=== PATIENT | female | born 1990 | race Caucasian/White ===

== ENCOUNTER → 2017-12-07 09:02 | Outpatient (CLI) | payer OTHER, SELFPAY ==
[2017-12-07 10:45] LABS: HCG Quantitative /Beta subunit 229.72 mIU/mL
== END ==
PROVIDERS: PCP Obstetrics & Gynecology; Visit Provider Family Medicine
DX: Z34.90 Encounter for supervision of normal pregnancy, unspecified, unspecified trimester (principal)
CPT/HCPCS: 36415; 84702

== ENCOUNTER → 2018-01-05 17:15 | Outpatient (CLI) | payer OTHER, MEDICAID, SELFPAY ==
[2018-01-05 17:56] LABS: Add Manual Diff / Slide Review NO; Basophils Percent Auto 0.2 % (0-2); Hematocrit 35.2 % (36-46); Lymphocytes Percent Auto 30.4 % (25-40); Mean Corpuscular HGB Conc 34.2 % (30-36); Mean Corpuscular Hemoglobin 29.2 PG (26-34); Mean Corpuscular Volume 85.4 fL (80-100); Monocytes Percent Auto 5.3 % (3-14); Neutrophils Absolute Auto 4800 /uL (3000-5900); Neutrophils Percent Auto 64.1 % (50-75); Platelet Count 171 X10^3/uL (150-400); Red Blood Cell Count 4.12 X10^6/uL (4.0-5.2); Red Cell Distribution Width 12.9 % (11.6-14.8); White Blood Cell Count 7.6 X10^3/uL (4.5-11.0)
[2018-01-05 19:21] LABS: Hepatitis B Surface Antigen NEGATIVE s/c (NEGATIVE); Rubella Antibody IgG 36.7 IU/mL (>15)
[2018-01-05 19:46] LABS: HIV 1 and 2 Antibody NEGATIVE (NEGATIVE); Hep C Virus Ab w/Reflex Quant NEGATIVE s/c (NEGATIVE)
[2018-01-07 13:33] LABS: HSV 2 IGG AB < 0.90 index (< 0.90); HSV1IGG < 0.90 index (< 0.90)
[2018-01-11 15:23] LABS: Rapid Plasma Reagin NON-REACTIVE
== END ==
PROVIDERS: Visit Provider Obstetrics & Gynecology
DX: Z34.91 Encounter for supervision of normal pregnancy, unspecified, first trimester (principal); Z12.4 Encounter for screening for malignant neoplasm of cervix; Z11.3 Encounter for screening for infections with a predominantly sexual mode of transmission; Z11.8 Encounter for screening for other infectious and parasitic diseases
CPT/HCPCS: 36415; 80055; 86695; 86696; 86703; 86787; 86803; 86850; 86900; 86901; 87077; 87086

== ENCOUNTER → 2018-03-02 10:18 | Outpatient (CLI) | payer OTHER, MEDICAID, SELFPAY ==
[2018-03-08 13:39] LABS: AFP, Serum 29.9 ng/mL; Calc Gestational Age 16.4; Cigarette Smoker NG; Donated Egg NOT GIVEN; Donor Egg Age NOT GIVEN; Estriol, Free 0.83 ng/mL; Inhibin A, Dimeric 194 pg/mL; Maternal Ethnicity White; Maternal Weight 225 lbs; Number of Fetuses 1; Previous Pregnancy Down Syndro NOT GIVEN; hCG, MoM 1.93; hCG, Serum 48.3 IU/mL
== END ==
PROVIDERS: Visit Provider Obstetrics & Gynecology
DX: Z34.82 Encounter for supervision of other normal pregnancy, second trimester (principal)
CPT/HCPCS: 36415; 82105; 82677; 84702; 86336

== ENCOUNTER → 2018-03-31 07:34 | Outpatient (CLI) | payer OTHER, MEDICAID, SELFPAY ==
--- NOTE | 2018-03-31 07:37 | DI.US.S_ITS ---
PROCEDURE: US OB >= 14 WEEKS FETUS INDICATIONS: ANATOMY OUTSIDE/PRIOR DATING DATA: Last menstrual period (LMP): 10/31/17. LMP-based estimated date of delivery (DANIELLA): 08/07/18. First dating scan (date and location): 01/05/18, by Dr. Tariq. Estimated date of delivery (DANIELLA) from first dating scan: 08/14/18, by Dr. Tariq. TECHNIQUE: Real-time scanning was performed of the fetus, with image documentation and biometric measurements. Endovaginal scanning: Not necessary for this study COMPARISON: [facility], , OB >= 14 WEEKS FETUS, 03/02/2018, 10:11. [facility], , OB <= 14 WEEKS FETUS, 02/02/2018, 9:28. [facility], , US OB <= 14 WEEKS FETUS, 01/05/2018, 17:03. FINDINGS: General: A single living intrauterine gestation is present. Presentation: Vertex. Placenta: Placental position is right-sided fundal, without previa. Amniotic fluid index: 14.5 cm, normal range is 5-24 cm. heart rate: 133 beats per minute. Maternal cervical canal: 3.1 cm long. Normal lower limit is 2.5 cm. biometrics: Biparietal diameter: 4.6 cm, 19 weeks 6 days Head circumference: 17.3 cm, 19 weeks 6 days Abdominal circumference: 15.7 cm, 20 weeks 6 days Femur length: 3.3 cm, 20 weeks 3 days Estimated gestational age from initial scan: 20 weeks 4 days Composite gestational age from present scan: 20 weeks 2 days Estimated weight and percentile: 360 g, 43rd percentile Measurement variability for biometric dating: +/- 7 days from 14 weeks to 15 weeks 6 days gestation, +/- 10 days from 16 weeks to 21 weeks 6 days gestation, +/- 2 weeks from 22 weeks to 27 weeks 6 days gestation, +/- 3 weeks for 28 weeks gestation or later. weight reference: 4500 g or EFW >90/95% is considered macrosomia or large for gestational age. EFW <10% is small for gestational age. EFW 5% or less is considered intra-uterine growth restriction. Anatomic survey: Neuro: Ventricles are non-dilated at less than 10 mm. Cisterna magna is normal at 3-11 mm. Cerebellum is normal in size and morphology. Nuchal skin fold: Normal at less than 6 mm between 14-21 weeks gestational age. Face: Nose and lips, facial profile are normal. Spine: No evidence for spina bifida. Heart: 4-chambered heart is present, with normal ventricular outflow tracts. Diaphragm: Diaphragm is intact. Stomach: Left-sided stomach is present. Kidneys: No hydronephrosis. Normal is less than 5 mm in 2nd trimester, less than 7 mm in 3rd trimester. Cord: 3-vessel cord has orthotopic insertion. Bladder: Normal in size. Extremities: All 4 extremities identified. IMPRESSION: Appropriate interval growth, no anomalies seen. The delivery date is projected to be centered on 08/14/18, plus or -5 days. Dictated by: Kayden Stewart M.D. on 03/31/2018 at 8:33 Approved by: Kayden Stewart M.D. on 03/31/2018 at 8:35
== END ==
PROVIDERS: Visit Provider Obstetrics & Gynecology
DX: Z34.82 Encounter for supervision of other normal pregnancy, second trimester (principal); Z3A.20 20 weeks gestation of pregnancy
CPT/HCPCS: 76811

== ENCOUNTER → 2018-05-14 08:29 | Outpatient (CLI) | payer OTHER, MEDICAID, SELFPAY ==
[2018-05-14 10:14] LABS: Hemoglobin 10.6 g/dL (12.0-16.0)
[2018-05-14 10:40] LABS: GTT (PREG) 1 Hour PP 50gm Dose 148 mg/dL (76-139)
== END ==
PROVIDERS: Visit Provider Obstetrics & Gynecology
DX: Z34.82 Encounter for supervision of other normal pregnancy, second trimester (principal)
CPT/HCPCS: 36415; 82950; 85014; 85018; 86850

== ENCOUNTER → 2018-05-18 07:11 | Outpatient (CLI) | payer OTHER, MEDICAID, SELFPAY ==
[2018-05-18 08:26] LABS: Glucose Fasting Gestational 90 mg/dL (76-95)
[2018-05-18 09:44] LABS: Glucose 1 Hour Gest 185 mg/dL (76-180)
[2018-05-18 10:16] LABS: Glucose 2 Hour Gest 144 mg/dL (76-155)
[2018-05-18 10:38] LABS: Glucose Tol Interp,Gestational INTERPRETATION
[2018-05-18 12:23] LABS: Glucose 3 Hour Gest 122 mg/dL (76-140)
== END ==
PROVIDERS: Visit Provider Obstetrics & Gynecology
DX: R73.09 Other abnormal glucose (principal)
CPT/HCPCS: 36415; 82951; 82952

== ENCOUNTER → 2018-07-21 14:48 | Outpatient (CLI) | payer OTHER, MEDICAID, SELFPAY ==
[2018-07-22 15:48] LABS: Strep Grp B PCR NEG for Grp B Strep
== END ==
PROVIDERS: PCP Family Medicine; Visit Provider Obstetrics & Gynecology
DX: Z34.83 Encounter for supervision of other normal pregnancy, third trimester (principal)
CPT/HCPCS: 87653

== ENCOUNTER 2018-08-12 06:43 | Inpatient (IN) | payer OTHER, MEDICAID, SELFPAY ==
[2018-08-12 08:01] LABS: Add Manual Diff / Slide Review NO; Basophils Absolute Auto 0 /uL (0-100); Basophils Percent Auto 0.3 % (0-2); Eosinophils Absolute Auto 0 /uL (0-450); Hematocrit 32.5 % (36-46); Hemoglobin 10.9 g/dL (12.0-16.0); Lymphocytes Absolute Auto 1700 /uL (1100-4500); Lymphocytes Percent Auto 25.4 % (25-40); Mean Corpuscular HGB Conc 33.5 % (30-36); Mean Corpuscular Hemoglobin 28.1 PG (26-34); Mean Corpuscular Volume 83.9 fL (80-100); Monocytes Absolute Auto 500 /uL (0-900); Neutrophils Absolute Auto 4500 /uL (1500-7000); Neutrophils Percent Auto 67.3 % (50-75); Platelet Count 174 X10^3/uL (150-400); Red Blood Cell Count 3.88 X10^6/uL (4.0-5.2); Red Cell Distribution Width 15.1 % (11.6-14.8); White Blood Cell Count 6.6 X10^3/uL (4.5-11.0)
[2018-08-12] MEDS: OXYTOCIN PREMIX 30 UNIT/500 ML PLAST..BAG IV (08:12)
[2018-08-12 08:42] VITALS: BP 132/78
--- NOTE | 2018-08-12 17:48 | PM.OBHP.1 ---
OB HPI Date/Time Date of admission: 08/12/18 Date Patient Seen: 08/12/18 Time Patient Seen: 11:35 History of Present Condition Chief complaint: LABOR AND DELIVERY : 2 Para: 1 Estimated Date of Delivery: 08/14/18 Estimated Gestational Age (weeks): 39+5 Narrative: Francesca Vinson is a 27 year old female 2 para 1 at 39 and 5/7 weeks gestation for induction of labor Indications Indication for induction OB: maternal discomfort and other (History of large baby) History of Present care: good care, initiated at week # (9), number of visits (12) and pounds weight gain (30) Dating criteria: LMP confirmed by 1st trimester US Ultrasounds: normal 1st trimester US and normal mid trimester US Medical complications: none Preadmission Labs Blood type: A (-) negative -: Antibody screen: negative, GBS status: negative, HBsAG: negative, HIV: negative, HSV 1: negative, HSV 2: negative and RPR/VDLR: negative -: Chlamydia screen: not detected and Gonorrhea screen: not detected -: Rubella: immune and Varicella: immune HCT: 30 HCAB: negative PAP: Normal Urine: Positive, treated 1 hr GTT: 148 3 hr GTT: 1 hr (185), 2 hr (144) and 3 hr (122) Fasting blood glucose: 90 Prior (ies) History: 1 , no complications Evaluation Evaluation Baseline heart rate: 140 Variability: Moderate (11-25) monitor accelerations: Present monitor decelerations: Absent Category of Tracing: I Cervical dilation (cm): 2 Cervical effacement (%): 80 station: -1 Laboratory results: Laboratory Tests 08/12/18 08/12/18 07:45 07:45 WBC 6.6 RBC 3.88 L Hgb 10.9 L Hct 32.5 L MCV 83.9 MCH 28.1 MCHC 33.5 RDW 15.1 H Plt Count 174 Neut % (Auto) 67.3 Lymph % (Auto) 25.4 [place] % (Auto) 7.0 Eos % (Auto) 0.0 L Baso % (Auto) 0.3 Neut # (Auto) 4500 Lymph # (Auto) 1700 [place] # (Auto) 500 Eos # (Auto) 0 Baso # (Auto) 0 Blood Type A Negative Antibody Screen Positive Antibody Identification Anti-D PFSH Surgical History No history of previous surgery (Resolved 03/06/14) Family History Father Age: 57 Hypertension Grandfather Diabetes mellitus Social History Smoking Status: Never smoker Family History Father Age: 57 Hypertension Grandfather Diabetes mellitus Social History Smoking Status: Never smoker Meds Home Medications Medication Instructions Recorded Confirmed Type [Foreign-E] 400 mg #0 04/27/17 04/13/18 History omega 7-qbw-omn-fish oil [Fish Oil] 1,200 mg QDAY #0 04/27/17 04/13/18 History 1 tab PO DAILY 12/14/17 08/12/18 History vitamin,calcium,gtvepvqx-krdl-kkgko acid tablet albuterol sulfate HFA 90 1 inhalation INHALATION ONCE #6.7 04/13/18 Rx mcg/actuation aerosol inhaler gram azithromycin 250 mg tablet See Rx Instructions PO .COMPLEX #6 04/13/18 Rx tab Allergies Allergy/AdvReac Type Severity Reaction Status Date / Time penicillin V [PENICILLIN V] Allergy Mild as a child Verified 04/13/18 17:48 loratadine [LORATADINE] AdvReac Mild NAUSEA Verified 04/13/18 17:48 Exam Vital Signs (past 8 hours): Generally: Patient sitting up in bed, no acute distress Lungs: Clear to auscultation bilaterally Cardiovascular: Regular rate and rhythm Fundal height: 41 cm Estimated weight 9 lb Extremities: Trace edema, negative Homans Objective Labs Result Diagrams: 08/12/18 07:45 Labs: Laboratory Results - last 24 hr 08/12/18 08/12/18 07:45 07:45 WBC 6.6 RBC 3.88 L Hgb 10.9 L Hct 32.5 L MCV 83.9 MCH 28.1 MCHC 33.5 RDW 15.1 H Plt Count 174 Neut % (Auto) 67.3 Lymph % (Auto) 25.4 [place] % (Auto) 7.0 Eos % (Auto) 0.0 L Baso % (Auto) 0.3 Neut # (Auto) 4500 Lymph # (Auto) 1700 [place] # (Auto) 500 Eos # (Auto) 0 Baso # (Auto) 0 Blood Type A Negative Antibody Screen Positive Antibody Identification Anti-D Assessment and Plan (1) 39 weeks gestation of : Current visit: Yes Status: Acute (2) Elective induction of labor planned: Current visit: Yes Status: Acute (3) Macrosomia: Current visit: Yes Status: Acute Plan: Assessment: 27-year-old 2 para 1 at 39-,5/7 weeks gestation for elective induction of labor due to previous history of nilee-mrx-clvgjvobyhn-age Desires tubal ligation Plan: Pitocin per protocol 2 Artificial rupture of membranes with light meconium-stained amniotic fluid Expected management to spontaneous vaginal delivery tubal ligation
--- NOTE | 2018-08-12 17:58 | P.HPOB_ITS ---
OB HPI Date/Time Date of admission: 08/12/18 Date Patient Seen: 08/12/18 Time Patient Seen: 11:35 History of Present Condition Chief complaint: LABOR AND DELIVERY : 2 Para: 1 Estimated Date of Delivery: 08/14/18 Estimated Gestational Age (weeks): 39+5 Narrative: Francesca Vinson is a 27 year old female 2 para 1 at 39 and 5/7 weeks gestation for induction of labor Indications Indication for induction OB: maternal discomfort and other (History of large baby) History of Present care: good care, initiated at week # (9), number of visits (12) and pounds weight gain (30) Dating criteria: LMP confirmed by 1st trimester US Ultrasounds: normal 1st trimester US and normal mid trimester US Medical complications: none Preadmission Labs Blood type: A (-) negative -: Antibody screen: negative, GBS status: negative, HBsAG: negative, HIV: ne gative, HSV 1: negative, HSV 2: negative and RPR/VDLR: negative -: Chlamydia screen: not detected and Gonorrhea screen: not detected -: Rubella: immune and Varicella: immune HCT: 30 HCAB: negative PAP: Normal Urine: Positive, treated 1 hr GTT: 148 3 hr GTT: 1 hr (185), 2 hr (144) and 3 hr (122) Fasting blood glucose: 90 Prior (ies) History: 1 , no complications Evaluation Evaluation Baseline heart rate: 140 Variability: Moderate (11-25) monitor accelerations: Present monitor decelerations: Absent Category of Tracing: I Cervical dilation (cm): 2 Cervical effacement (%): 80 station: -1 Laboratory results: Laboratory Tests 08/12/18 08/12/18 07:45 07:45 WBC 6.6 RBC 3.88 L Hgb 10.9 L Hct 32.5 L MCV 83.9 MCH 28.1 MCHC 33.5 RDW 15.1 H Plt Count 174 Neut % (Auto) 67.3 Lymph % (Auto) 25.4 [place] % (Auto) 7.0 Eos % (Auto) 0.0 L Baso % (Auto) 0.3 Neut # (Auto) 4500 Lymph # (Auto) 1700 [place] # (Auto) 500 Eos # (Auto) 0 Baso # (Auto) 0 Blood Type A Negative Antibody Screen Positive Antibody Identification Anti-D PFSH Surgical History No history of previous surgery (Resolved 03/06/14) Family History Father Age: 57 Hypertension Grandfather Diabetes mellitus Social History Smoking Status: Never smoker Family History Father Age: 57 Hypertension Grandfather Diabetes mellitus Social History Smoking Status: Never smoker Meds Home Medications Medication Instructions Recorded Confirmed Type [Foreign-E] 400 mg #0 04/27/17 04/13/18 History omega 5-lmf-swk-fish oil [Fish Oil] 1,200 mg QDAY #0 04/27/17 04/13/18 History 1 tab PO DAILY 12/14/17 08/12/18 History vitamin,calcium,bktpfstu-gvmv-lpddj acid tablet albuterol sulfate HFA 90 1 inhalation INHALATION ONCE #6.7 04/13/18 Rx mcg/actuation aerosol inhaler gram azithromycin 250 mg tablet See Rx Instructions PO .COMPLEX #6 04/13/18 Rx tab Allergies Allergy/AdvReac Type Severity Reaction Status Date / Time penicillin V [PENICILLIN V] Allergy Mild as a child Verified 04/13/18 17:48 loratadine [LORATADINE] AdvReac Mild NAUSEA Verified 04/13/18 17:48 Exam Vital Signs (past 8 hours): Generally: Patient sitting up in bed, no acute distress Lungs: Clear to auscultation bilaterally Cardiovascular: Regular rate and rhythm Fundal height: 41 cm Estimated weight 9 lb Extremities: Trace edema, negative Homans Objective Labs Result Diagrams: 08/12/18 07:45 Labs: Laboratory Results - last 24 hr 08/12/18 08/12/18 07:45 07:45 WBC 6.6 RBC 3.88 L Hgb 10.9 L Hct 32.5 L MCV 83.9 MCH 28.1 MCHC 33.5 RDW 15.1 H Plt Count 174 Neut % (Auto) 67.3 Lymph % (Auto) 25.4 [place] % (Auto) 7.0 Eos % (Auto) 0.0 L Baso % (Auto) 0.3 Neut # (Auto) 4500 Lymph # (Auto) 1700 [place] # (Auto) 500 Eos # (Auto) 0 Baso # (Auto) 0 Blood Type A Negative Antibody Screen Positive Antibody Identification Anti-D Assessment and Plan (1) 39 weeks gestation of : Current visit: Yes Status: Acute (2) Elective induction of labor planned: Current visit: Yes Status: Acute (3) Macrosomia: Current visit: Yes Status: Acute Plan: Assessment: 27-year-old 2 para 1 at 39-,5/7 weeks gestation for elective induction of labor due to previous history of nqzfu-nho-qrtlzwszsjx-age Desires tubal ligation Plan: Pitocin per protocol 2 Artificial rupture of membranes with light meconium-stained amniotic fluid Expected management to spontaneous vaginal delivery tubal ligation
--- NOTE | 2018-08-12 17:58 | PM.OBPRVD ---
Delivery date: 08/12/18 Intrapartal events: None Cervical ripening method: none Induction method: per pitocin protocol Delivery augmentation: rupture of membranes Delivery monitor: external FHT and external uterine Route of delivery: Episiotomy description: None L&D Laceration Description: None Estimated blood loss (mL): 150 Anesthesia type: None Complications: None Narrative: Patient complete and pushed x1. At 2:25 p.m., a live female infant delivered spontaneously over an intact perineum. The remainder of the body delivered without difficulty and was placed on mom's abdomen. After the cord stopped pulsing, the cord was double clamped and cut. Cord bloods were obtained. Placenta delivered intact with a 3 vessel cord at 2:30 p.m.. No lacerations. Thin meconium-stained amniotic fluid. . Apgars 8 at 1 min and 9 at 5 min. Weight 9 lb 9.62 oz. . Mom and stable to recovery. Plan for aftercare: To routine care
--- NOTE | 2018-08-13 | PATH_ITS ---
[facility] Accession Number: [id number] . 01 Material submitted: . SEGMENTS RIGHT AND LEFT FALLOPIAN TUBES . 02 Diagnosis: Right and Left Fallopian Tube Segments, Bilateral Tubal Ligation: Complete cross-sections of segments of fallopian tube x2. Negative for atypia and malignancy. MRV/08/16/2018 . 02 Electronically signed: . Shira Clemente MD, Pathologist NPI- [id number] . 01 Gross description: . Received in formalin, labeled segments right + left fallopian tubes, are two fimbriated fallopian tubes (tube #1: length-3.1 cm, diameter-0.4 cm; tube #2: length-3.4 cm, diameter-0.5) with elizalde-pink smooth shiny serosa and elizalde unremarkable lumens. Section code: (A1) fallopian tube #1, mechanical service representative serial sections; (A2) fimbria #1, bivalved, entirely submitted; (A3) fallopian tube #2, mechanical service representative serial sections; (A4) fimbria #2, bivalved, entirely submitted. ([id number]) /MRV . 02 Pathologist provided ICD-10: Z30.2 . 02 CPT . 422738 Performed at: 01 [facility] [address], [place], [place] [id number] MD Chavo Gonzalez MD Phone: [phone] Performed at: 02 [facility] [address] [place], [place] [id number] MD Aleksandra Oro MD Phone: [phone]
[2018-08-13 05:34] LABS: Hematocrit 30.1 % (36-46); Hemoglobin 10.2 g/dL (12.0-16.0)
--- NOTE | 2018-08-13 07:37 | PM.PREOP ---
Pre-operative Note Interval Note History & Physical reviewed/Exam performed by Physician: Yes Changes to H&P: No H&P completed within 30 days and has changed as indicated here:: s/p vaginal delivery
--- NOTE | 2018-08-13 07:38 | PM.PN.1 ---
Subjective Date Patient Seen: 08/13/18 Time Patient Seen: 07:38 Interval history: Post vaginal delivery. Patient is requesting tubal ligation. Patient is aware of all control options. She requests permanent sterilization. She understands she can have no more children after this procedure. The risks of damage to the intestine or other internal structures discussed. Risk of infection discussed. One 400 risk of ectopic after tubal ligation discussed. Consent form was signed and questions answered. Patient denies any signs or symptoms of preeclampsia. She is ambulatory. She has no nausea. Her bleeding is minimal. Exam Vital Signs (past 8 hours): Blood pressure 116/63, pulse of 82, temperature 97.8? Narrative Exam Narrative: Patient's abdomen is soft, nontender. Uterus is firm, at U, nontender. Mild lochia. Extremities without edema and nontender Objective Labs Result Diagrams: 08/13/18 05:11 Labs: Laboratory Results - last 24 hr 08/12/18 08/12/18 08/13/18 07:45 07:45 05:11 WBC 6.6 RBC 3.88 L Hgb 10.9 L Hct 32.5 L MCV 83.9 MCH 28.1 MCHC 33.5 RDW 15.1 H Plt Count 174 Neut % (Auto) 67.3 Lymph % (Auto) 25.4 [place] % (Auto) 7.0 Eos % (Auto) 0.0 L Baso % (Auto) 0.3 Neut # (Auto) 4500 Lymph # (Auto) 1700 [place] # (Auto) 500 Eos # (Auto) 0 Baso # (Auto) 0 Blood Type A Negative Antibody Screen Positive Antibody Identification Anti-D Maternal Bleed Negative 08/13/18 05:11 WBC RBC Hgb 10.2 L Hct 30.1 L MCV MCH MCHC RDW Plt Count Neut % (Auto) Lymph % (Auto) [place] % (Auto) Eos % (Auto) Baso % (Auto) Neut # (Auto) Lymph # (Auto) [place] # (Auto) Eos # (Auto) Baso # (Auto) Blood Type Antibody Screen Antibody Identification Maternal Bleed Assessment & Plan Assessment & Plan narrative: vaginal delivery with undesired fertility requesting tubal ligation. Likely home after recovering from anesthetic. Time Spent With Patient Time with patient: less than 15 minutes
[2018-08-13] MEDS: RHO(D) IMMUNE GLOBULIN 1,500 UNIT SYRINGE 1500 UNIT IM (08:51)
--- NOTE | 2018-08-13 12:00 | SUR.OPER ---
Supine on padded OR bed, head on pillow, arms secured on padded arm boards at <90 degrees abduction, legs uncrossed, safety belt at thigh, tape over blanket over lower legs.
[2018-08-13] MEDS: CEFAZOLIN 1 GM/50 ML FROZ.PIGGY IV (12:25)
[2018-08-13] MEDS: BUPIVACAINE 0.5% W/ EPI (PF) VIAL 30 ML INJ (12:54)
[2018-08-13 13:21] VITALS: BP 109/73; PULSE 89; RESP 15; TEMP 36.3; O2SAT 90
--- NOTE | 2018-08-13 13:24 | PM.OP.1 ---
Operative Date/Time/Diagnoses Date of procedure: 08/13/18 Time of procedure: 13:25 Pre-op diagnosis: Undesired fertility Post-op diagnosis: same Procedure & Clinicians Procedure: Mini-laparotomy bilateral tubal ligation Same procedure as scheduled: Yes Indications: Undesired fertility status post vaginal delivery Surgeon: Nica Farnsworth Click Yes if Unassisted: Yes Anesthesia Type: General Operative Notes Findings: Normal fallopian tubes bilaterally Closure Type: primary Specimen(s): other (Segments of bilateral fallopian tubes) Estimated Blood Loss (mL): 1 Blood products transfused: none Procedure in detail: Patient was brought to the operating room where she underwent general anesthesia. She was in a supine position. She was prepped and draped in the usual sterile fashion. Warming was with blankets. 1 g Ancef was in prior to beginning of the case. A check system was reviewed with staff in the room. The area of the umbilicus was injected with 0.5% Marcaine with epinephrine. An incision was made with a scalpel and incision carried down to the fascial layer which was incised transversely. The peritoneum was entered sharply. There did not appear to be damage to internal structures with entering the abdomen. The fallopian tube on the right side was grasped with a [place] and followed to the fimbria. A segment was tied off x2 with 2 0 plain suture. The intervening segment was removed and sent to pathology. The tube was injected with 0.5% Marcaine. Adequate hemostasis was noted and the tube was allowed to fall back in the abdomen. Same procedure was performed on the left side. The fascial layer was closed with 2 0 Vicryl. The skin was closed with 4 0 Vicryl. The patient went to recovery room in good condition. Counts of instruments and sponges were correct. Complications: none Condition: stable Disposition: same day surgery Plan for aftercare: Home when awake and stable. Patient has follow-up appointment scheduled with Dr. Tariq in 2 weeks
[2018-08-13 13:26] VITALS: BP 106/75; PULSE 92; RESP 16; O2SAT 95
--- NOTE | 2018-08-13 13:29 | P.OP_ITS ---
Operative Date/Time/Diagnoses Date of procedure: 08/13/18 Time of procedure: 13:25 Pre-op diagnosis: Undesired fertility Post-op diagnosis: same Procedure & Clinicians Procedure: Mini-laparotomy bilateral tubal ligation Same procedure as scheduled: Yes Indications: Undesired fertility status post vaginal delivery Surgeon: Nica Farnsworth Click Yes if Unassisted: Yes Anesthesia Type: General Operative Notes Findings: Normal fallopian tubes bilaterally Closure Type: primary Specimen(s): other (Segments of bilateral fallopian tubes) Estimated Blood Loss (mL): 1 Blood products transfused: none Procedure in detail: Patient was brought to the operating room where she underwent general anesthesia. She was in a supine position. She was prepped and draped in the usual sterile fashion. Warming was with blankets. 1 g Ancef was in prior to beginning of the case. A check system was reviewed with staff in the room. The area of the umbilicus was injected with 0.5% [place] with epinephrine. An incision was made with a scalpel and incision carried down to the fascial layer which was incised transversely. The peritoneum was entered sharply. There did not appear to be damage to internal structures with entering the abdomen. The fallopian tube on the right side was grasped with a [place] and followed to the fimbria. A segment was tied off x2 with 2 0 plain suture. The intervening segment was removed and sent to pathology. The tube was injected with 0.5% Marcaine. Adequate hemostasis was noted and the tube was allowed to fall back in the abdomen. Same procedure was performed on the left side. The fascial layer was closed with 2 0 Vicryl. The skin was closed with 4 0 Vicryl. The patient went to recovery room in good condition. Counts of instruments and sponges were correct. Complications: none Condition: stable Disposition: same day surgery Plan for aftercare: Home when awake and stable. Patient has follow-up a ppointment scheduled with Dr. Tariq in 2 weeks
[2018-08-13 13:31] VITALS: BP 107/72; PULSE 77; RESP 10; O2SAT 97
[2018-08-13] MEDS: fentaNYL 100 MCG/2 ML INJ 50 MCG IV (13:33)
[2018-08-13 13:36] VITALS: BP 108/71; PULSE 76; RESP 9; O2SAT 97
[2018-08-13 13:41] VITALS: BP 110/73; PULSE 75; RESP 14; O2SAT 94
--- NOTE | 2018-08-13 13:44 | SUR.PHASEI ---
Small amt of pink drainage to brandon-pad
--- NOTE | 2018-08-13 13:47 | SUR.PHASEI ---
Report called to JENNIFER Gee
--- NOTE | 2018-08-13 13:57 | SUR.PHASEI ---
Pt reported 2-3/10 abd pain. Pt transferred to the center. Vs stable. Report to Marlen. Umbilical drsg cdi. Small to mod amt of pink drainage to brandon-pad. IV saline locked.
[2018-08-13] MEDS: IBUPROFEN 600 MG TABLET PO (15:10)
[2018-08-13 17:52] VITALS: BP 120/73; PULSE 71; RESP 16; TEMP 36.1
--- NOTE | 2018-08-15 10:46 | PM.OBDS.1 ---
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 She received Pitocin. She delivered spontaneously without any vaginal tears a viable female infant weighing 9 lb 9.6 oz. Patient underwent a tubal ligation. She did well after the procedure. She had no signs or symptoms of preeclampsia. Her bleeding was mild. Her pain was under control. Blood pressure 111/68, pulse 71, temperature 97.4? Patient's abdomen is soft, appropriately tender. Dressing is dry at the umbilicus. Mild lochia with perineum intact. Extremities without edema and nontender. Patient is rubella immune. Peripartum Data Delivery Method: Natural Vaginal Laceration description: None Procedures: Who vaginal delivery, tubal ligation complications: none 1: Gender: Female Disposition of : home Discharge Diagnosis (1) 39 weeks gestation of : Status: Acute (2) Elective induction of labor planned: Status: Acute (3) Macrosomia: Status: Acute (4) Spontaneous vaginal delivery: Status: Acute (5) Sterilization: Status: Acute Status at Discharge Functional status at discharge: independent ambulation Overall status at discharge: patient is progressing back to baseline Time Spent with Patient Total time spent providing and/or coordinating discharge services: Less than 30 minutes Objective Labs Result Diagrams: 08/13/18 05:11 Discharge Plan Discharge Plan Patient Disposition: Home Discharge comment: Call with fever, chills, redness or drainage around incision or bleeding vaginally more than a pad in an hour Discharge Med Rec/Prescriptions Prescriptions: New oxycodone-acetaminophen [Percocet] 5-325 mg tablet 1 tab PO Q4-6H PRN (Reason: pain) Qty: 20 RF: 0 Continued albuterol sulfate 90 mcg/actuation HFA aerosol inhaler 1 inhalation INHALATION ONCE Qty: 6.7 RF: 0 omega 6-hvz-qgz-fish oil [Fish Oil] 1,000 MG capsule 1,200 mg QDAY Qty: 0 RF: 0 [Foreign-E] 400 mg Qty: 0 RF: 0 prenat.vits,rosa,mne-iyjo-ddoqu [ Vitamin] tablet 1 tab PO DAILY RF: 0 Discontinued azithromycin 250 mg tablet See Rx Instructions PO .COMPLEX Qty: 6 RF: 0 Follow up/Referrals: Britany Tariq MD [Physician] - 2 Weeks (Your two week follow up appt. with Dr. Tariq is on August 24 @12:30pm. Your six week follow up appointment with Dr. Tariq is September 20@3pm.) Provider Discharge Instructions Diet: Diet as Tolerated Activity: No intercourse Skin/Wound/Dressing Care Report to your healthcare provider any signs of infection, such as:: chills, fever, increased pain, unusual drainage and unusual redness Dressing: Remove after first shower Visit Report/Discharge Packet Instructions: DI for Tubal Ligation, DI for Labor and Delivery, Vaginal Stand Alone Forms: Discharge: Care Visit Report Forms: Stroke Signs & Symptoms Discharge Data Primary Care Provider: Marjorie Alvarez Attending Provider: Britany Tariq Admit Date/Time: 08/12/18 06:43 Discharges patient from system. Discharge Date/Time: 08/13/18 18:35
--- NOTE | 2018-08-15 10:50 | P.DS_ITS ---
Discharge Providers Date of admission: 08/12/18 06:43 Primary care physician: Marjorie Alvarez MD Consults: 08/12/18 17:40 Consult to Supervisor Mail Carriers Routine Comment: Discharge provider: Nica Farnsworth MD Discharge Date: 08/13/18 Summary Date Patient Seen: 08/13/18 Time Patient Seen: 15:30 Hospital Course: Patient arrived on Labor and delivery on 08/12/2018 for induction for term gestation and LGA . She received Pitocin. She delivered spontaneously without any vaginal tears a viable female infant weighing 9 lb 9.6 oz. Patient underwent a tubal ligation. She did well after the procedure. She had no signs or symptoms of preeclampsia. Her bleeding was mild. Her pain was under control. Blood pressure 111/68, pulse 71, temperature 97.4? Patient's abdomen is soft, appropriately tender. Dressing is dry at the umbil icus. Mild lochia with perineum intact. Extremities without edema and nontender. Patient is rubella immune. Peripartum Data Delivery Method: Natural Vaginal Laceration description: None Procedures: Who vaginal delivery, tubal ligation complications: none [place] 1: Gender: Female Disposition of : home Discharge Diagnosis (1) 39 weeks gestation of : Status: Acute (2) Elective induction of labor planned: Status: Acute (3) Macrosomia: Status: Acute (4) Spontaneous vaginal delivery: Status: Acute (5) Sterilization: Status: Acute Status at Discharge Functional status at discharge: independent ambulation Overall status at discharge: patient is progressing back to baseline Time Spent with Patient Total time spent providing and/or coordinating discharge services: Less than 30 minutes Objective Labs Result Diagrams: 08/13/18 05:11 Discharge Plan Discharge Plan Patient Disposition: Home Discharge comment: Call with fever, chills, redness or drainage around incision or bleeding vaginally more than a pad in an hour Discharge Med Rec/Prescriptions Prescriptions: New oxycodone-acetaminophen [Percocet] 5-325 mg tablet 1 tab PO Q4-6H PRN (Reason: pain) Qty: 20 RF: 0 Continued albuterol sulfate 90 mcg/actuation HFA aerosol inhaler 1 inhalation INHALATION ONCE Qty: 6.7 RF: 0 omega 2-brp-qzd-fish oil [Fish Oil] 1,000 MG capsule 1,200 mg QDAY Qty: 0 RF: 0 [Foreign-E] 400 mg Qty: 0 RF: 0 prenat.vits,rosa,ybm-jilq-mewcy [ Vitamin] tablet 1 tab PO DAILY RF: 0 Discontinued azithromycin 250 mg tablet See Rx Instructions PO .COMPLEX Qty: 6 RF: 0 Follow up/Referrals: Britany Tariq MD [Physician] - 2 Weeks (Your two week follow up appt. with Dr. Tariq is on August 24 @12:30pm. Your six week follow up appointment with Dr. Tariq is September 20@3pm.) Provider Discharge Instructions Diet: Diet as Tolerated Activity: No intercourse Skin/Wound/Dressing Care Report to your healthcare provider any signs of infection, such as:: chills, fever, increased pain, unusual drainage and unusual redness Dressing: Remove after first shower Visit Report/Discharge Packet Instructions: DI for Tubal Ligation, DI for Labor and Delivery, Vaginal Stand Alone Forms: Discharge: Care Visit Report Forms: Stroke Signs & Symptoms Discharge Data Primary Care Provider: Marjorie Alvarez Attending Provider: Britany Tariq Admit Date/Time: 08/12/18 06:43 Discharges patient from system. Discharge Date/Time: 08/13/18 18:35
== END 2018-08-13 18:35 | disposition home or self-care (01) | DRG 798 ==
PROVIDERS: Specialist; Admitting Provider Obstetrics & Gynecology; PCP Family Medicine; Visit Provider Obstetrics & Gynecology
PROC: 0UB74ZZ Excision of Bilateral Fallopian Tubes, Percutaneous Endoscopic Approach (ICD-10-PCS; CPT 58605; principal; 2018-08-13 12:30)
DX: O36.63X0 Maternal care for excessive fetal growth, third trimester, not applicable or unspecified (principal); Z37.0 Single live birth; O26.813 Pregnancy related exhaustion and fatigue, third trimester; Z3A.39 39 weeks gestation of pregnancy; Z30.2 Encounter for sterilization
CPT/HCPCS: 36415; 58605; 59050; 59410; 85014; 85018; 85025; 85461; 86850; 86870; 86900; 86901; G0379; J0330; J1100; J1885; J2250; J2405; J2590; J2704; J2790; J3010

== ENCOUNTER → 2020-06-27 07:42 | Outpatient (CLI) | payer OTHER, SELFPAY ==
--- NOTE | 2020-06-27 07:43 | DI.RAD.S_ITS ---
PROCEDURE: XR FOOT RT MIN 3V INDICATIONS: R foot pain/trauma 3-5th metatarsals TECHNIQUE: 3 views of the foot were acquired. COMPARISON: [facility], CR, XR FOOT LT MIN 3V, 11/05/2017, 10:26. FINDINGS: Bones: No fractures or dislocations. No suspicious bony lesions. Soft tissues: No tibiotalar joint effusion. Achilles tendon appears normal. IMPRESSION: No fracture. If the patient's symptoms do not improve recommend followup radiographs in 10 days to assess for healing sclerosis/occult injury. Dictated by: Maciel Schwartz M.D. on 06/27/2020 at 9:49 Approved by: Maciel Schwartz M.D. on 06/27/2020 at 9:52
== END ==
PROVIDERS: PCP Family Medicine; Referring Provider Nurse Practitioner; Visit Provider Nurse Practitioner
DX: M79.671 Pain in right foot (principal)
CPT/HCPCS: 73630